=== PATIENT | male | born 1980 | race African-American/Black ===

== ENCOUNTER 2018-02-02 13:13 | Outpatient (CLI) | payer SELFPAY ==
--- NOTE | 2018-02-02 14:47 | Diagnostic Imaging Report ---
GENIA SANCHEZ [facility] [address] [facility].[address] [address] Report Submission Date: Feb 02, 2018 1:45:20 PM [employer] Patient Study Name: ECHO BOTELLO Date: Feb 02, 2018 1:14:10 PM [employer] Modality Type: DX Gender: M Description: CHEST : 82 Institution: [facility] Physician: GENIA SANCHEZ Examination: PA and lateral chest. History: Evaluate lung perez. POSITIVE TB TEST Findings: PA and lateral views of the chest demonstrates a normal cardiac and mediastinal silhouette. No focal infiltrate. No blunting of the costophrenic margins. No evidence for apical scarring. Osseous structures are appropriate for age. Impression: No acute pulmonary process. No evidence for active tuberculosis by plain film sensitivity. Electronically signed on Feb 02, 2018 1:45:20 PM SALT [employer]ER by: Gregor CARRILLO
== END 2018-02-02 13:14 ==
LOC: RAD 13:13
PROVIDERS: ATTEND Family Medicine
DX: R76.11 Nonspecific reaction to tuberculin skin test without active tuberculosis (principal)
CPT/HCPCS: 71046